=== PATIENT | male | born 1960 | race Caucasian/White ===

== ENCOUNTER 2016-08-15 16:32 | Emergency (ER) | payer OTHER ==
[2016-08-15 16:45] VITALS: TEMP 98
[2016-08-15 17:13] VITALS: RESP 20; O2SAT 96
[2016-08-15 17:23] LABS: BASOPHILS % (AUTO) 1 % (0-3); EOSINOPHILS % (AUTO) 2 % (0-9); HEMATOCRIT 40 % (39-53); MEAN CORPUSCULAR HGB CONC 32.7 gm/dl (32.0-36.0); MONOCYTES % (AUTO) 9.2 % (0-12); NEUTROPHILS % (AUTO) 66.3 % (37-80)
[2016-08-15 17:32] LABS: MEAN CORPUSCULAR VOLUME 74 fL (80-100)
[2016-08-15 17:39] LABS: ANISOCYTOSIS SLIGHT AMT; TARGET CELLS PRESENT
[2016-08-15 17:49] LABS: CALCIUM 8.6 mg/dl (8.5-10.1); GLOM FILT RATE 84 mL/min (>60); POTASSIUM 3.8 mMol/L (3.5-5.1); SODIUM 139 mMol/L (136-145); THYROID STIMULATING HORMONE 2.135 uU/ml (0.358-3.740)
[2016-08-15 18:13] VITALS: BP 148/78; PULSE 78
== END 2016-08-15 18:16 | disposition home or self-care (01) ==
LOC: ED 16:32
DX: M10.9 Gout, unspecified (principal)
CPT/HCPCS: 36415; 80048; 84443; 84484; 84550; 85025; 93005; 99283

== ENCOUNTER 2018-04-04 11:08 | Emergency (ER) | payer OTHER ==
[2018-04-04 11:21] VITALS: TEMP 97.9
[2018-04-04] MEDS ORDERED: ONDANSETRON HCL 4 MG/2 ML SOL IV ONE (11:38)
[2018-04-04] MEDS ORDERED: LIDOCAINE HCL 2% (VISCOUS) 20 ML SOL PO ONE (11:38)
[2018-04-04] MEDS ORDERED: SODIUM CHLORIDE 0.9% 1000ML 1,000 ML IV ONE (11:38)
[2018-04-04] MEDS ORDERED: ALUMINUM/MAGNESIUM 30 ML SUS PO ONE (11:38)
[2018-04-04] MEDS ORDERED: HYDROMORPHONE HCL 2 MG/ML SOL IV ONE (11:38)
[2018-04-04] MEDS ORDERED: PANTOPRAZOLE SODIUM 40 MG/10 ML PDS IV ONE (11:38)
[2018-04-04 11:52] LABS: BASOPHILS % (AUTO) 1 % (0-3); EOSINOPHILS % (AUTO) 0 % (0-9); HEMATOCRIT 43 % (39-53); HEMOGLOBIN 13.2 gm/dl (13.5-17.7); LYMPHOCYTES % (AUTO) 11.5 % (10-50); MEAN CORPUSCULAR HEMOGLOBIN 23.3 pg (27.0-32.0); MEAN CORPUSCULAR HGB CONC 30.5 gm/dl (32.0-36.0); MONOCYTES % (AUTO) 6.5 % (0-12); NEUTROPHILS % (AUTO) 80.6 % (37-80)
[2018-04-04] MEDS ORDERED: LIDOCAINE HCL 2% (VISCOUS) 20 ML SOL ONE (11:57)
[2018-04-04] MEDS ORDERED: ALUMINUM/MAGNESIUM 30 ML SUS ONE (11:57)
[2018-04-04 12:03] LABS: MEAN CORPUSCULAR VOLUME 76 fL (80-100)
[2018-04-04] MEDS ORDERED: HYDROMORPHONE 1 MG/ML SYRINGE ONE (12:04)
[2018-04-04 12:09] LABS: ALBUMIN 3.4 gm/dl (3.4-5.0); ALKALINE PHOSPHATASE 124 IU/L (46-116); ALT 63 IU/L (14-63); AMYLASE 55 IU/L (25-115); AST 66 IU/L (15-37); BILIRUBIN,TOTAL 2.3 mg/dl (0.2-1.0); BLOOD UREA NITROGEN 12 mg/dl (7-18); CALCIUM 8.8 mg/dl (8.5-10.1); CARBON DIOXIDE 24.6 mEq/L (21-32); CHLORIDE 101 mMol/L (98-107); CREATININE 1.05 mg/dl (0.80-1.30); GLUCOSE 158 mg/dl (74-106); SODIUM 137 mMol/L (136-145); TOTAL PROTEIN 7.9 gm/dl (6.4-8.2); TROP I < 0.017 ng/ml (0.000-0.056)
[2018-04-04 12:10] LABS: ANISOCYTOSIS SLIGHT AMT
[2018-04-04] MEDS ORDERED: ONDANSETRON HCL 4 MG/2 ML SOL ONE (12:11)
[2018-04-04] MEDS ORDERED: PANTOPRAZOLE SODIUM 40 MG/10 ML PDS ONE (12:11)
[2018-04-04 16:40] VITALS: RESP 18
[2018-04-04 16:43] VITALS: BP 136/89; PULSE 78; O2SAT 94
[2018-04-04] MEDS ORDERED: FENTANYL 100MCG/2ML SOL IV ONE (20:57)
== END 2018-04-04 17:26 | disposition home or self-care (01) ==
LOC: ED 11:08
DX: K29.70 Gastritis, unspecified, without bleeding (principal); N20.1 Calculus of ureter; K81.9 Cholecystitis, unspecified; K74.60 Unspecified cirrhosis of liver; R16.1 Splenomegaly, not elsewhere classified
CPT/HCPCS: 36415; 74177; 80053; 82150; 84484; 85025; 93005; 96365; 96374; 96375; 99285; J2405; Q9967; A9270-GY; J1170